=== PATIENT | male | born 1945 | race Hispanic/Latino ===

== ENCOUNTER 2018-10-12 06:21 | Inpatient (IN) ==
[2018-10-12] MEDS ORDERED: ZOFRAN IV PRN (07:02)
[2018-10-12 11:41] LABS: BASO# 0.04 X1000 (0.0-0.2); BASO% 0.4 % (0.0-0.8); EOS# 0.59 X1000 (0.0-0.7); EOS% 6.5 % (0.0-10.0); HEMATOCRIT 38.2 % (42.0-52.0); HEMOGLOBIN 12.8 g/dL (14.0-18.0); IMM GRAN# 0.03 X1000 (0.0-0.04); IMM GRAN% 0.3 % (0.0-0.5); LYMPH# 2.79 X1000 (1.2-3.4); LYMPH% 30.7 % (20.5-51.1); MCH 27.4 PG (27-31); MCHC 33.5 g/dL (33-37); MCV 81.6 FL (81-99); MONO# 0.93 X1000 (0.11-0.59); MONO% 10.2 % (1.7-9.3); MPV 10.2 FL (7.4-10.4); NEUT# 4.71 X1000 (1.4-6.5); NEUT% 51.9 % (42.2-75.2); PLT 280 X1000 (130-400); RBC 4.68 XMIL (4.7-6.1); RDW 13.8 % (11.5-14.5); WBC 9.09 X1000 (4.8-10.8)
[2018-10-12 11:58] LABS: HEMOGLOBIN A1C 6.8 % (4.8-6.0)
[2018-10-12 12:03] LABS: AGAP 13; ALB/GLOB RATIO 1.1; ALBUMIN 3.8 g/dL (3.5-5.0); ALKALINE PHOSPHATASE 111 U/L (32-122); BUN 21 mg/dL (8-22); CALCIUM 8.7 mg/dL (8.8-10.2); CHLORIDE 97 mmol/L (98-107); COSMO 270; CREATININE 0.7 mg/dL (0.7-1.2); ESTIMATED GFR > 60; GLUCOSE 138 mg/dL (70-104); GOT 28 U/L (10-34); GPT 17 U/L (10-44); MAGNESIUM 1.7 mg/dL (1.5-2.7); POTASSIUM 3.6 mmol/L (3.5-5.1); SODIUM 132 mmol/L (136-145); TCO2 22 mmol/L (25-35); TOTAL BILIRUBIN 0.38 mg/dL (0.20-1.00); TOTAL PROTEIN 7.3 g/dL (6.3-8.3)
[2018-10-12 12:07] LABS: CHOLESTEROL 170 mg/dL (0-200); HDL 49 mg/dL (35-55); LDL 77 mg/dL; TRIGLYCERIDES 220 mg/dL (39-160); VLDL 44 mg/dL
--- NOTE | 2018-10-12 14:28 | Diag Imaging Result Doc PS360 ---
EXAM: CT THORAX W/CONTRAST 10/12/2018 HISTORY: suspected pna TECHNIQUE: This exam was performed using automated exposure control, adjustment of mA or kV according to patient size, and/or use of iterative reconstruction technique. COMMENT: The current study is compared with the previous examination of 02/08/2018. There continues to be subpleural honeycombing and traction bronchiectasis, in both upper lobes predominantly. In addition to this there is a generalized decrease in expansion of the lungs and some ill-defined patchy opacity present in both lower lobes. The possibility of pneumonia superimposed on the pre-existing pulmonary fibrosis cannot be excluded. There are number of enlarged. Vascular nodes one of which exceed six 18 mm in size. Previously this measured 16 mm. There are no abnormal fluid collections. There is no evidence of acute disease in the visualized portion of the abdomen. There is a fair amount of stool in the visualized portion of the colon. The regional skeleton is stable in appearance. IMPRESSION: Pulmonary fibrosis with superimposed bronchopneumonia. Slightly worsened mediastinal adenopathy. Electronically signed by Milo Do 10/12/2018 2:26 PM
--- NOTE | 2018-10-12 14:30 | Diag Imaging Result Doc PS360 ---
EXAM: CT HEAD W/O CONTRAST 10/12/2018 HISTORY: dizziness TECHNIQUE: This exam was performed using automated exposure control, adjustment of mA or kV according to patient size, and/or use of iterative reconstruction technique. COMMENT: There are no previous studies. There is mucosal thickening in the left maxillary sinus. The calvarium is intact. There is no evidence of mass effect, bleed, or abnormal extra-axial fluid collection. There is calcification in the globus pallidus bilaterally. There is a small punctate calcification in the right cerebellar hemisphere. There are calcifications in the internal carotid arteries and vertebral arteries bilaterally. IMPRESSION: Chronic left maxillary sinusitis. No evidence of acute intracranial disease. Electronically signed by Milo Do 10/12/2018 2:28 PM
[2018-10-12] MEDS ORDERED: TYLENOL PO PRN (15:11)
[2018-10-12] MEDS ORDERED: VANCOMYCIN IV PER PHARMACY MISC SCH (15:15)
[2018-10-12] MEDS: DUONEB (A & A) INH SCH ×3 (15:27→23:07)
--- NOTE | 2018-10-12 16:28 | HISTORY AND PHYSICAL ---
CHIEF COMPLAINT: Subjective fevers and bilateral chest pain in chest wall. HISTORY OF PRESENT ILLNESS: This is a 72-year-old male with past medical history of pulmonary fibrosis, in this case interstitial pneumonia with autoimmune features, diabetes mellitus and benign prostatic hypertrophy, who is being admitted as a direct admission for possible pneumonia. He reports a PEG tube, carotid stenosis, general malaise, more fatigue, and also more cough with whitish sputum. He reports that his had some acute bronchitis a couple weeks ago. He also reports that his pulmonary fibrosis is being treated with CellCept that he has taken for approximately 2 months. Currently he is taking 1 gram p.o. q. 12 hours. He has been recommended to use oxygen for shortness of breath, although he reports every time he checks his O2 saturations, he is most of the time about 94% to 95% oxygen saturation. PAST MEDICAL HISTORY: 1. 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 2. Pulmonary tuberculosis diagnosed 5 years ago. 3. Diabetes mellitus type 2 on metformin currently, well controlled hemoglobin A1c less than 7 for the last 3 years. 4. Benign prostatic hypertrophy. Currently on Flomax. 5. Situational depression. PAST SURGICAL HISTORY.: Surgery on the right side of the neck for trauma to the carotid artery because of an accident apparently 45 years ago. ALLERGIES: Patient is allergic to penicillin. Actually, he reports that he got a shot of penicillin and he had syncope and rash that happened approximately 20 to 25 years ago. SOCIAL HISTORY: Patient lives in [place] with his . The patient denies smoking cigarettes for the last 50 years. He usually smoked at that time 3 to 4 cigarettes not on a daily basis. He does not chew tobacco. He reports some occasional alcohol consumption, probably 10 years ago was the last time. He denies using any illicit drugs. REVIEW OF SYSTEMS: General malaise. No weight loss. No night sweats. PHYSICAL EXAMINATION: VITAL SIGNS: Temperature 97.9 degrees, heart rate 82, respiratory rate 20, blood pressure 128/60, O2 saturation 98% on room air. GENERAL EXAMINATION: This is a chronically ill-appearing, 72-year-old male, lying in bed in no acute distress. HEENT: Head is normocephalic, atraumatic. NECK: No JVD noted. No carotid bruits. No lymphadenopathy. No thyromegaly. CARDIOVASCULAR EXAM: S1, S2 heard. No murmurs, gallops, or rubs. Regular rate and rhythm. RESPIRATORY EXAM: Crackles noted in both pulmonary grayson. Patient is not using any accessory muscles or having work of breathing. ABDOMEN: Soft, nontender to palpation. Bowel sounds present. No organomegaly. EXTREMITIES: Peripheral pulses present in both legs. NEUROLOGICAL EXAM: The patient is alert and oriented x3. Moves 4 extremities. LABORATORY DATA: White cell count 9.09, hemoglobin 10.8, hematocrit 38.2, platelets 280 with INR 1.0. Sodium 132, creatinine 0.7, glucose 138. A1c 6.8. Calcium 8.7. X-RAYS: Chest CT showed pulmonary fibrosis with superimposed bronchopneumonia, slightly worsened mediastinal adenopathy. ASSESSMENT AND PLAN: 1. Acute bronchopneumonia. That is the reason why this patient was brought to the hospital. At this time, I think even though he is saturating well on room air and white cell count is normal, we will start on broad-spectrum antibiotics. In this case, we are going to use vancomycin and Zosyn. We will provide breathing treatment with DuoNebs every 4 hours as scheduled. I think we will also add a small dose of Solumedrol. Continue to monitor. Will consult Dr. Yeboah from Pulmonary. 2. Diabetes mellitus type 2. We will check Accu-Cheks before meals and also at bedtime. I will use sliding scale insulin small doses. Hemoglobin A1c is well controlled but we do expect to have some elevation of the blood sugars secondary to intravenous steroids. 3. Benign prostatic hypertrophy. We will continue with Flomax. 4. Depression. We will continue with escitalopram. 5. Disposition: We will continue to monitor this patient closely. cc: Brooks Bautista MD [facility]
[2018-10-12] MEDS: MAXIPIME 1 GM in NS 50 ML IV SCH (16:44)
[2018-10-12] MEDS: SOLU-MEDROL IV SCH ×2 (16:45→23:24)
[2018-10-12] MEDS: PRILOSEC PO SCH (16:45)
[2018-10-12] MEDS: LEXAPRO PO SCH (16:53)
[2018-10-12] MEDS ORDERED: VANCOMYCIN 1,300 MG in NS 250 ML IV ONE (17:00)
--- NOTE | 2018-10-12 19:37 | PULMONOLOGY CONSULTATION ---
DATE: 10/12/2018 REQUESTING PHYSICIAN: Dr. Gómez. REASON FOR CONSULTATION: Pulmonary fibrosis with increased symptomatology. HISTORY OF PRESENT ILLNESS: Mr. Pathak is a 72-year-old male, limited tobacco history, who was diagnosed with a fibrotic pulmonary process 4 to 5 years ago. The patient has been evaluated by a senior asic design engineer and he was noted to have an elevation in his anti-DNA and anti-BUTT MAKER nuclear antibodies, and has been initiated on mycophenolate for the last several months. He has a remote history of tuberculosis with treatment. Over the last 2 weeks, he has had increased cough, increased sputum production, with increased shortness of breath and fatigue. He has been admitted to the hospital for additional evaluation and treatment. PAST MEDICAL HISTORY: Problem list: 1. Pulmonary fibrosis, as per above. 2. History of tuberculosis, as per above. 3. Type 2 diabetes mellitus, on metformin. 4. BPH. 5. History of depression. 6. Remote carotid artery injury. 7. Allergy to penicillin. SOCIAL HISTORY: The patient lives in [place]. Remote history of tobacco use. No significant alcohol use. FAMILY HISTORY: Noncontributory to current presentation. REVIEW OF SYSTEMS: As noted in the HPI. PHYSICAL EXAMINATION: General: A thin male, resting comfortably and in no distress. Vital Signs: Blood pressure 128/64, heart rate 87, respiratory rate 18, oxygen saturation 97% on room air. HEENT: Pupils are equal and reactive. Oropharynx is clear. Neck: Supple. Chest: Diffuse crackles bilaterally. Cardiac: S1, S2. Abdomen: Soft. Extremities: Without edema. LABORATORIES: CT scan of the thorax performed today is reviewed and compared to 02/08/2018. The patient has new ill-defined infiltrates in both lower lobes, which is much more prominent than 8 months ago. The patient has nonspecific mediastinal adenopathy. Sodium 132, potassium 3.6, chloride 97, bicarbonate 22, BUN 21, creatinine 0.7, glucose 138. Hemoglobin A1c 6.8. High sensitivity C-reactive protein is elevated at 1.98 mg/dL. White blood count 9.09, hemoglobin 12.8, platelet count 281,000. ESR is elevated at 71. IMPRESSION: A 72-year-old with pulmonary fibrosis, with elevation and rheumatologic markers, who has been on mycophenolate for the last 2 months. Most recently, he has had increased cough, increased shortness of breath, and increasing fatigue. CT scan looks significantly worse than prior scan 11 months ago with new bibasilar infiltrates. This may represent progression of his disease or an acute exacerbation of his disease, but with his immunosuppression and prior history of tuberculosis exposure, this may be an infectious process. Due to his recent decline, I recommend pursuing bronchoscopy with transbronchial biopsies. The risks of the biopsies include infection, bleeding, and pneumothorax. Dr. Gómez was at the bedside and he translated these risks to Mr. Pathak. RECOMMENDATIONS: 1. N.p.o. after midnight. 2. Proceed with bronchoscopy with transbronchial biopsies of the right lower lobe, with a bronchoalveolar lavage of the left upper lobe and possibly left lower lobe. cc: Donell Yeboah MD
[2018-10-12] MEDS: FLOMAX PO SCH (20:42)
[2018-10-12] MEDS ORDERED: CELLCEPT PO SCH (21:00)
[2018-10-12] MEDS: TUSSIONEX LIQUID PO SCH (21:10)
[2018-10-12] MEDS: MUCOMYST 20% INH SCH (23:07)
[2018-10-13] MEDS: DUONEB (A & A) INH SCH ×4 (03:19→22:42)
[2018-10-13] MEDS: MAXIPIME 1 GM in NS 50 ML IV SCH ×2 (04:19→16:31)
[2018-10-13 06:36] LABS: HEMATOCRIT 39.1 % (42.0-52.0); HEMOGLOBIN 13.3 g/dL (14.0-18.0); LYMPH# 1.08 X1000 (1.2-3.4); LYMPH% 17.6 % (20.5-51.1); MCH 27.3 PG (27-31); MCV 80.1 FL (81-99); MONO# 0.05 X1000 (0.11-0.59); MONO% 0.8 % (1.7-9.3); NEUT# 5.02 X1000 (1.4-6.5); NEUT% 81.6 % (42.2-75.2); PLT 294 X1000 (130-400); RBC 4.88 XMIL (4.7-6.1); RDW 13.4 % (11.5-14.5); WBC 6.15 X1000 (4.8-10.8)
[2018-10-13] MEDS ORDERED: XYLOCAINE 2% ONE ×2 (06:46→07:05)
--- NOTE | 2018-10-13 07:00 | EKG Report ---
Test Performed on : 10/13/2018 06:34:11 AM Test Reason : chest pain Blood Pressure : / mmHG Vent. Rate : 096 BPM Atrial Rate : 096 BPM P-R Int : 166 ms QRS Dur : 080 ms QT Int : 362 ms P-R-T Axes : 054 045 056 degrees QTc Int : 457 ms Normal sinus rhythm. Septal infarct , age undetermined Abnormal ECG No previous ECGs available Confirmed by Cesar Butterfield MD ([id number]) on 10/13/2018 9:10:46 AM
[2018-10-13] MEDS ORDERED: SODIUM CHLORIDE 0.9% 20 ML ONE (07:05)
[2018-10-13] MEDS ORDERED: XYLOCAINE 2% VISCOUS ONE (07:05)
[2018-10-13] MEDS ORDERED: EPINEPHRINE ONE (07:05)
[2018-10-13 07:16] LABS: AGAP 12; ALB/GLOB RATIO 0.9; ALBUMIN 3.9 g/dL (3.5-5.0); ALKALINE PHOSPHATASE 107 U/L (32-122); BUN 16 mg/dL (8-22); CALCIUM 9.6 mg/dL (8.8-10.2); CHLORIDE 96 mmol/L (98-107); COSMO 272; CREATININE 0.7 mg/dL (0.7-1.2); ESTIMATED GFR > 60; GLUCOSE 250 mg/dL (70-104); GOT 24 U/L (10-34); GPT 17 U/L (10-44); POTASSIUM 4.3 mmol/L (3.5-5.1); SODIUM 131 mmol/L (136-145); TCO2 23 mmol/L (25-35); TOTAL BILIRUBIN 0.38 mg/dL (0.20-1.00); TOTAL PROTEIN 8.1 g/dL (6.3-8.3)
[2018-10-13] MEDS: HUMALOG SUBQ SCH ×4 (07:18→20:14)
[2018-10-13] MEDS ORDERED: ROBINUL ONE (07:18)
[2018-10-13] MEDS ORDERED: XYLOCAINE-MPF 2% ONE (07:18)
[2018-10-13] MEDS ORDERED: DIPRIVAN 1% ONE ×2 (07:23→07:44)
--- NOTE | 2018-10-13 08:42 | OPERATIVE NOTE ---
PROCEDURE DATE: PROCEDURES PERFORMED: 1. Bronchoscopy with tracheal wash. 2. Bronchoalveolar lavage, left lower lobe. 3. Bronchoalveolar lavage, left upper lobe. 4. Transbronchial biopsies, right lower lobe. 5. Washing, right lower lobe. CLINICAL INDICATION: A 72-year-old with pulmonary fibrosis and new pulmonary infiltrates, on immunosuppression. DESCRIPTION OF PROCEDURE: The patient was identified in the holding area. An official court interpreter was at the bedside, and all questions were answered. The patient was brought to the operating room #8, where the procedure was performed. When all participants were in position, a time-out was performed. All agreed with the procedure. Topical anesthesia was achieved with viscous lidocaine to the right nostril, with 2% lidocaine instilled above the vocal cords and below the vocal cords during the procedure. Monitored anesthesia care was provided by the Anesthesia group. When topical anesthesia and sedation were achieved, bronchoscope was advanced through the right nostril, to the level of the vocal cords. The vocal cords were smooth and without lesions. The bronchoscope was advanced into the trachea. There was increase in clear, tenacious, gelatinous secretions in the proximal tracheobronchial tree. These secretions were suctioned for cultures and cytology. Airways to the right upper lobe, right middle lobe, right lower lobe, left upper lobe, lingula, and left lower lobe were patent and without lesions. The bronchoscope was directed to the apical posterior segment of the left upper lobe. It was wedged into position, and a bronchoalveolar lavage was performed with 60 mL of normal saline. There was good effluent return. The bronchoscope was directed to the left lower lobe. Then, 60 mL of saline were instilled into the lateral segment of the left lower lobe. There was good effluent return. The bronchoscope was directed to the right lower lobe. Approximately 7 transbronchial biopsies were taken from the lateral segment of the right lower lobe under fluoroscopy. There was minimal bleeding associated with the biopsies, and this was controlled with one instillation of topical epinephrine. Following the transbronchial biopsies, a washing was performed from the right lower lobe. When the lavage was complete, the segment was visualized. No bleeding was identified. The bronchoscope was removed, with continued visual inspection of the airway with retraction of the bronchoscope. No additional findings were noted. The coating technician visualized the apex of the right lung. No pneumothorax was visualized post procedure. A conventional chest x-ray will be performed to confirm this finding. The patient tolerated the procedure without difficulty. IMPRESSION: Status post successful lavage of the left upper lobe, lavage of the left lower lobe, tracheal wash, wash of the right lower lobe, transbronchial biopsy of the right lower lobe as outlined above. cc: MD Brooks Lopez MD
--- NOTE | 2018-10-13 08:53 | Diag Imaging Result Doc PS360 ---
CHEST-1 VIEW - 10/13/2018 INDICATION: s/p bronchoscopy COMPARISON: Chest CT 10/12/2018 FINDINGS: There are diffuse bilateral coarse peripheral interstitial opacities with basilar predominance. This is slightly worse on the left than the right. No pneumothorax or pleural effusion. Heart size is normal. IMPRESSION: Severe pulmonary fibrosis. Electronically signed by Teodoro Castillo 10/13/2018 8:51 AM
[2018-10-13] MEDS: TUSSIONEX LIQUID PO SCH ×2 (10:00→20:14)
[2018-10-13] MEDS: SOLU-MEDROL IV SCH ×3 (10:01→23:21)
[2018-10-13] MEDS: PRILOSEC PO SCH (10:01)
[2018-10-13] MEDS: FLOMAX PO SCH ×2 (10:01→20:14)
[2018-10-13] MEDS: LEXAPRO PO SCH (10:01)
--- NOTE | 2018-10-13 10:54 | Carotid Study ---
DATE: 10/12/2018 PROCEDURE: Carotid duplex imaging. REFERRING PHYSICIAN: Brooks Bautista MD INTERPRETING PHYSICIAN: Homer Purcell MD. TECH: Norris. INDICATIONS: Dizziness. OBSERVED DATA RIGHT LEFT Brachial Blood Pressure Carotid Pulse Bruits: Carotid/Sub DIAGRAM OF ULTRASOUND IMAGING R L RIGHT INT EXT INT EXT LEFT Micky (cm/s) Micky (cm/s) Subclavian Subclavian CCA Proximal CCA Proximal CCA Distal CCA Distal Bulb Bulb ICA Proximal ICA Proximal ICA Mid ICA Mid ICA Distal ICA Distal ECA ECA Vertebral Vertebral ICA/CCA Ratio ICA/CCA Ratio % Stenosis % Stenosis FINDINGS: There is minimal atherosclerotic disease in the carotid systems bilaterally. There is no turbulent flow or significant stenoses. The percent stenosis is 0-39% bilaterally. PHYSICIAN INTERPRETATION: Unremarkable carotid imaging study. cc: MD Brooks Rico MD
--- NOTE | 2018-10-13 11:00 | PROGRESS NOTE ---
DATE: 10/13/2018 SUBJECTIVE: Patient reports feeling fine. Denies any shortness of breath. He continues with persistent cough but no fever or chills. OBJECTIVE: Vital Signs: Temperature 98.0 degrees, heart rate 112, respiratory rate 18, blood pressure 111/49, O2 saturation 95% on room air. General Examination: This is a 72-year-old, male, lying in bed, in no acute distress. Cardiovascular Examination: S1 and S2 heard. No murmurs, gallops, or rubs. Regular rate and rhythm. Respiratory Examination: Crackles and rhonchi noted in both pulmonary grayson. The patient is not using any accessory muscles or having work of breathing. Abdomen: Soft, nontender to palpation. Bowel sounds present. No organomegaly. Extremities: No clubbing, cyanosis, or edema. Peripheral pulses present in both legs. Neurological Examination: The patient is alert and oriented x3. Moves 4 extremities. Laboratory Data: Reviewed. Blood sugar is 250. ASSESSMENT AND PLAN: 1. Acute bronchopneumonia. The patient has been started on vancomycin and Zosyn. The patient has undergone a bronchoscopy. Dr. Yeboah's input appreciated. At this point, we will wait for the results from bronchial lavage and biopsies. We will continue with the current medication. 2. Diabetes mellitus type 2. Because he is receiving intravenous steroids, blood sugars are getting higher so we will cover this with insulin, Humalog sliding scale. 3. Benign prostatic hypertrophy. We will continue with Flomax. 4. Situational depression. We will continue with Lexapro. 5. Pulmonary fibrosis. We have stopped Cellcept because of this acute pneumonia. 5. Disposition. I think if the patient continues to improve, we will discharge him tomorrow. cc: MD KATHLEEN Lomax
[2018-10-13] MEDS: MUCOMYST 20% INH SCH ×2 (11:17→22:41)
[2018-10-13] MEDS ORDERED: VANCOMYCIN 1 GM/NS 1 GM/250 ML IVPB IV SCH (17:00)
[2018-10-14] MEDS: DUONEB (A & A) INH SCH ×2 (03:45→10:09)
[2018-10-14] MEDS: MAXIPIME 1 GM in NS 50 ML IV SCH ×2 (05:43→12:51)
[2018-10-14] MEDS: HUMALOG SUBQ SCH ×2 (06:49→11:42)
[2018-10-14] MEDS: FLOMAX PO SCH (08:32)
[2018-10-14] MEDS: PRILOSEC PO SCH (08:32)
[2018-10-14] MEDS: TUSSIONEX LIQUID PO SCH (08:32)
[2018-10-14] MEDS: LEXAPRO PO SCH (08:32)
--- NOTE | 2018-10-14 09:23 | ECHO REPORT ---
ORDER DATE: 10/12/2018 INTERPRETING PHYSICIAN: DR. Ozzy Bowles ECHOCARDIOGRAPHIC MEASUREMENTS: 1. Interventricular septum: 1.1 cm. 2. Posterior wall: 0.9 cm. 3. Diastolic diameter: 3.8 cm. 4. Left atrium: 3.5 cm. 5. Aortic root: 3.1 cm. SUMMARY OF THE 2-DIMENSIONAL IMAGIN. Aortic valve leaflets mildly sclerosed. Trileaflet opening normally. 2. Pulmonic valve was normal. There is trace pulmonary regurgitation. 3. Tricuspid valve was normal. 4. Mitral valve was normal. There is moderate to severe mitral annular calcification. 5. There is left atrial enlargement. 6. There is mild tricuspid regurgitation. Peak velocity across the tricuspid valve was 3 m/sec. 7. Pulmonary artery systolic pressure of 46 to 50 mmHg. 8. There is mild mitral regurgitation. 9. Peak velocity across the aortic valve less than 2 m/sec. There is no aortic stenosis or regurgitation. 10. Normal left ventricular cavity size. Estimated ejection fraction of 60% to 65%. There is diastolic dysfunction. 11. There is no pericardial effusion or obvious intracardiac mass or thrombus seen. cc: MD Brooks Donis MD
[2018-10-14] MEDS: MUCOMYST 20% INH SCH (10:08)
[2018-10-14 12:36] VITALS: BP 141/66
--- NOTE | 2018-10-15 11:37 | DISCHARGE SUMMARY ---
ADMISSION DATE: 10/12/2018 DISCHARGE DATE: 10/14/2018 DISCHARGE DIAGNOSES: 1. Acute bronchopneumonia improved. 2. Pulmonary fibrosis. 3. Diabetes mellitus type 2. 4. Benign prostatic hypertrophy 5. Situational depression. PROCEDURES: 1. Carotid Doppler showed no significant stenosis. 2. Chest CT showed pulmonary fibrosis with superimposed pneumonia slightly worsening mediastinal adenopathy. 3. Echocardiogram Doppler showed ejection fraction of 60 to 65%. Pulmonary artery systolic pressure [address] unremarkable. 5. PFT report showed conclusion within normal limits. 6. Bronchoscopy performed by Dr. Yeboah. HOSPITAL COURSE: This is a 72-year-old male with history of pulmonary fibrosis and diabetes who was admitted directly because of symptoms of cough, general malaise, more shortness of breath during the last 3 days. The patient was started on broad-spectrum antibiotics, and we have ordered workup as above. The patient has been given antibiotics in this case, vancomycin and cefepime. Results from bronchoalveolar lavage did not show any bacteria. At this point, as per recommendation from Dr. Yeboah, we are going to resume his CellCept and we are going to start prednisone 20 mg p.o. daily for a month and see how he does. He may need probably antibiotic in this case probably Levaquin for a week. He is being discharged in stable condition. DISCHARGE PHYSICAL EXAMINATION: Vital Signs: Temperature 97.6 degrees, heart rate 117, respiratory rate 18, blood pressure 141/66 and O2 saturation 96% on room air. General: This is a chronically ill-appearing, 72-year-old male, lying in bed in no acute distress. Cardiovascular: S1 and S2 heard. No murmurs, gallops, or rubs. Regular rate and rhythm. Respiratory: Minimal crackles noted in both pulmonary bases. Patient not using any accessory muscles or having work of breathing. Abdomen: Soft, nontender to palpation. Bowel sounds present. No organomegaly. Extremities: No clubbing, cyanosis, or edema. Peripheral pulses present in both legs. Neurological: The patient alert and oriented x3. Moves all 4 extremities. DISCHARGE DISPOSITION: Home to self-care DISCHARGE MEDICATIONS: 1. Prednisone 20 mg 1 tablet p.o. daily. 2. Albuterol Atrovent as needed for cough. 3. Omeprazole 40 mg 1 tablet p.o. daily. 4. Citalopram 10 mg 1 tablet p.o. daily. 5. Metformin 500 mg 1 tablet p.o. b.i.d. 6. CellCept 1000 mg p.o. b.i.d. 7. Citalopram 10 mg 1 tablet p.o. daily. cc: Brooks Bautista MD
--- NOTE | 2018-10-19 20:09 | PULMONARY FUNCTION REPORT ---
DATE: 10/12/2018 CLINICAL HISTORY: A 72-year-old with pulmonary fibrosis and dyspnea. SPIROMETRY: The FVC is 2.53 L or 83% of predicted. FEV1 is 2.26 L or 97% of predicted. The FEV1/FVC ratio is 90%. The FEF 25-75 is 4.68 L/seconds or 257% of predicted. No change following bronchodilator. LUNG VOLUMES: Total lung capacity is 4.80 L or 88% of predicted. Residual volume is 2.35 L or 111% of predicted. The FRC is 3.37 L or 119% of predicted. Diffusion DLCO not corrected for hemoglobin level is mildly reduced at 14.35 mL/minute per mmHg or 66% of predicted. IMPRESSION: 1. Normal spirometry before and after bronchodilator. 2. Normal lung volumes. 3. Mild reduction in diffusion capacity. cc: Donell Yeboah MD
== END 2018-10-14 14:10 | disposition home or self-care (01) | DRG 168 ==
LOC: INTOOBSV 06:21 → DIRADM 06:21 → SUATTDRO 06:21 → OBSVTOIN 06:21 → 3N 10:23
PROVIDERS: ATTEND Internal Medicine
CPT/HCPCS: 70450; 71010; 71045; 71260; 76000; 80053; 80061; 82948; 83036; 83516; 83735; 84153; 85025; 85610; 85651; 86038; 86039; 86141; 86235; 86480; 86698; 87015; 87040; 87070; 87088; 87102; 87103; 87116; 87147; 87205; 87206; 87385; 88112; 88305; 88312; 88313; 89220; 93005; 93010; 93306; 93880; 94060; 94375; 94640; 94726; 94729; 94760; 94761; A9270; J0171; J0692; J1815; J2920; J3370; J7050; Q9967; XXXXX